=== PATIENT | male | born 1975 | race African-American/Black ===

== ENCOUNTER → 2017-07-30 | Outpatient (CLI) | payer OTHER ==
[2017-08-01 06:38] LABS: LUTEINIZING HORMONE 4.2 mIU/mL (1.7-8.6)
[2017-08-01 08:22] LABS: PROLACTIN 4.2 ng/mL (4.0-15.2)
== END ==
LOC: OD 15:13
PROVIDERS: ATTEND Urology
DX: I10 Essential (primary) hypertension (principal); F17.200 Nicotine dependence, unspecified, uncomplicated; N46.9 Male infertility, unspecified
CPT/HCPCS: 36415; 83001; 83002; 84146; 84403

== ENCOUNTER → 2017-09-02 | Outpatient (CLI) | payer SELFPAY ==
[2017-09-02 12:03] LABS: SPERM MORPHOLOGY SENT TO REFERENC LAB
[2017-09-02 12:50] LABS: ROUND CELL CONC. 0.5 X10^6/mL (<5.1); SA DILUTION FACTOR 2; SA NONMOTILE CONCENTRATION 8.6 X10^6/mL; SA NONMOTILE COUNT1 89; SA NONMOTILE COUNT2 83; SA ROUND CELL COUNT1 4; SA ROUND CELL COUNT2 5
[2017-09-02 12:53] LABS: SA DILUTION CNT 1 41; SA DILUTION CNT 2 51; SA SPERM MOTILE CONC 0.6 X10^6mL; TOTAL SPERM COUNT 28.5 X10^6 (>33.0)
[2017-09-02 12:54] LABS: SPERM PROGRESSION 4
[2017-09-02 13:32] LABS: PERCENT VIABLE 28 %; SEMEN VIABILITY STAINED 156; SEMEN VIABILITY UNSTAINED 60; TOTAL VIABILITY COUNT 216
[2017-09-02 13:34] LABS: PERCENT NONMOTILE SPERM 93 %; SPERM VIABILITY 33 % (>55)
== END ==
LOC: LAB 11:44
PROVIDERS: ATTEND Urology
DX: N46.9 Male infertility, unspecified (principal)
CPT/HCPCS: 89320

== ENCOUNTER 2018-10-23 17:20 | Emergency (ER) | payer SELFPAY ==
[2018-10-23] MEDS ORDERED: NORMAL SALINE 1000 ML 1,000 ML IV ONE ×3 (17:56→20:59)
[2018-10-23] MEDS ORDERED: ONDANSETRON HCL INJ/PF 4 MG/2 ML SDV IV ONE (17:57)
--- NOTE | 2018-10-23 17:59 | ER Document Report ---
ED Medical Screen (RME) - General Chief Complaint: S/S of Possible Stroke Stated Complaint: STROKE LIKE SYMPTOMS Time Seen by Provider: 10/23/18 17:47 Notes: Patient is a 42-year-old male that presents to the emergency department for chief complaint of weakness, generalized, increased thirst, and urination. Symptoms started earlier this morning, and seem to have progressed over that period of time until now, patient states he has decreased energy, denies weakness on one side of the body of the other, overall feels like he may pass out.. ROS: Other than noted above, the 12 point review of systems was reviewed with the patient and were negative, all pertinent findings are included in the HPI. PHYSICAL EXAMINATION: Vital signs reviewed. GENERAL: Well-appearing, well-nourished and in no acute distress. HEAD: Atraumatic, normocephalic. EYES: Pupils equal round extraocular movements intact, conjunctiva are normal. ENT: Nares patent NECK: Normal range of motion CV: Heart rate tachycardic, regular rhythm. LUNGS: No respiratory distress Musculoskeletal: Normal range of motion NEUROLOGICAL: Normal speech, no focal neurological deficit, NIH stroke scale score: 0. PSYCH: Normal mood, normal affect. MDM: Patient seen and examined for rapid initial assessment. Vital signs reviewed. A comprehensive ED assessment and evaluation of the patient, analysis of test results and completion of the medical decision making process will be conducted by additional ED providers. *Note is created using voice recognition software and may contain spelling, syntax or grammatical errors. TRAVEL OUTSIDE OF THE [place] IN LAST 30 DAYS: No - Related Data Allergies/Adverse Reactions: No Known Allergies Allergy (Verified 10/23/18 17:54) Past Medical History - Social History Chew tobacco use (# tins/day): No Frequency of alcohol use: None Drug Abuse: None - Past Medical History Cardiac Medical History: Reports: Hx Hypertension Renal/ Medical History: Denies: Hx Peritoneal Dialysis Physical Exam - Vital signs Vitals: Temp Pulse Resp BP Pulse Ox 97.6 F 104 H 22 H 145/79 H 93 10/23/18 17:36 10/23/18 17:36 10/23/18 17:36 10/23/18 17:36 10/23/18 17:36 Course - Vital Signs Vital signs: Temp Pulse Resp BP Pulse Ox 97.6 F 104 H 22 H 145/79 H 93 10/23/18 17:36 10/23/18 17:36 10/23/18 17:36 10/23/18 17:36 10/23/18 17:36 Doctor's Discharge - Discharge Referrals: PAULINA CALLES MD [Primary Care Provider] - Follow up as needed
[2018-10-23 18:33] LABS: VENOUS BLOOD BASE EXCESS -2.3 mmol/L; VENOUS BLOOD HCO3 24.7 mmol/L (20-32); VENOUS BLOOD PCO2 50.2 mmHg (35-63); VENOUS BLOOD PH 7.31 (7.30-7.42)
[2018-10-23 18:37] LABS: HEMATOCRIT 47.5 % (37.9-51.0); HEMOGLOBIN 14.8 g/dL (13.5-17.0); MEAN CORPUSCULAR HEMOGLOBIN 33.1 pg (27.0-33.4); MEAN CORPUSCULAR HGB CONC 31.1 g/dL (32.0-36.0); MEAN CORPUSCULAR VOLUME 106 fl (80-97); PLATELET COUNT 204 10^3/uL (150-450); RED BLOOD COUNT 4.48 10^6/uL (4.35-5.55); RED CELL DISTRIBUTION WIDTH 13.8 % (11.5-14.0); WHITE BLOOD COUNT 15.3 10^3/uL (4.0-10.5)
[2018-10-23 18:44] LABS: APPEARANCE,URINE CLEAR; BILIRUBIN,URINE NEGATIVE (NEGATIVE); COLOR,URINE COLORLESS; GLUCOSE, URINE >=500 mg/dL (NEGATIVE); KETONES,URINE NEGATIVE (NEGATIVE); LEUKOCYTE ESTERASE,URINE NEGATIVE (NEGATIVE); NITRITE,URINE NEGATIVE (NEGATIVE); PROTEIN,URINE NEGATIVE (NEGATIVE); URINE SPECIFIC GRAVITY 1.023; UROBILINOGEN,URINE NEGATIVE mg/dL (<2.0)
[2018-10-23 18:53] LABS: ALANINE AMINOTRANSFERASE 29 U/L (21-72); ALBUMIN 4.3 g/dL (3.5-5.0); ALKALINE PHOSPHATASE 116 U/L (38-126); ASPARTATE AMINO TRANSFERASE 28 U/L (17-59); BILIRUBIN,DIRECT 0.5 mg/dL (0.0-0.4); BILIRUBIN,TOTAL 0.9 mg/dL (0.2-1.3); BLOOD UREA NITROGEN 55 mg/dL (7-20); CALCIUM 9.5 mg/dL (8.4-10.2); TOTAL PROTEIN 6.5 g/dL (6.3-8.2)
[2018-10-23 19:01] LABS: CARBON DIOXIDE 21 mmol/L (22-30); CHLORIDE 53 mmol/L (98-107)
--- NOTE | 2018-10-23 19:02 | RADIOLOGY REPORT (SQ) ---
EXAM DESCRIPTION: CHEST SINGLE VIEW COMPLETED DATE/TIME: 10/23/2018 6:51 pm REASON FOR STUDY: weakness, confusion COMPARISON: None. EXAM PARAMETERS: NUMBER OF VIEWS: One view. TECHNIQUE: Single frontal radiographic view of the chest acquired. RADIATION DOSE: NA LIMITATIONS: None. FINDINGS: LUNGS AND PLEURA: Nonspecific or round opacity of the left lung base. No focal consolidat ion, pleural effusion, pneumothorax. MEDIASTINUM AND HILAR STRUCTURES: No masses. Contour normal. HEART AND VASCULAR STRUCTURES: Heart normal in size. Normal vasculature. BONES: No acute findings. HARDWARE: None in the chest. OTHER: No other significant finding. IMPRESSION: 1. No acute airspace disease. 2. Nodule like opacity of the left lung base which may represent an underlying pulmonary nodule. Non emergent dedicated chest CT is recommended for further evaluation. TECHNICAL DOCUMENTATION: JOB ID: [id number] [employer]- All Rights Reserved Reading location - IP/workstation name: [email or web address]
[2018-10-23 19:03] LABS: ABSOLUTE LYMPHOCYTES# (MANUAL) 0.9 10^3/uL (0.5-4.7); ABSOLUTE MONOCYTES # (MANUAL) 0.2 10^3/uL (0.1-1.4); ABSOLUTE NEUTROPHILS# (MANUAL) 14.2 10^3/uL (1.7-8.2); BASOPHILS % (MANUAL) 0 % (0-2); EOSINOPHILS % (MANUAL) 0 % (0-6); LYMPHOCYTES % (MANUAL) 6 % (13-45); MONOCYTES % (MANUAL) 1 % (3-13); PLATELET COMMENT ADEQUATE; SEGMENTED NEUTROPHILS % (MAN) 93 % (42-78); TOTAL CELLS COUNTED 100
[2018-10-23] MEDS ORDERED: CEFEPIME 2 GM/D5W RTU 2 GM/50 ML RTUPB IV ONE (19:10)
[2018-10-23] MEDS ORDERED: RINGERS SOLUTION,LACTATED 1,000 ML IV ONE (19:10)
--- NOTE | 2018-10-23 19:15 | ER Document Report ---
ED General - General Chief Complaint: S/S of Possible Stroke Stated Complaint: STROKE LIKE SYMPTOMS Time Seen by Provider: 10/23/18 17:47 Cannot obtain history due to: Altered mental status Notes: Patient is a 42-year-old male without chronic medical problems beyond hypertension who presents with 3-4 days of progressively worsening weakness, fatigue, and is currently so weak per significant other at the bedside he is unable to walk. History is somewhat limited as patient is lethargic and unable to provide appropriate history. He does state that he feels globally weak and "not good". Has not had fever or vomiting but does report that he has been nauseated. No headache, neck pain or chest pain. Denies any focal weakness or numbness. No recent falls or trauma. No history of similar symptoms in the past. He has not seen his primary care doctor regarding today's concerns. TRAVEL OUTSIDE OF THE [place] IN LAST 30 DAYS: No - Related Data Allergies/Adverse Reactions: No Known Allergies Allergy (Verified 10/23/18 17:54) Past Medical History - General Information source: Patient - Social History Smoking Status: Current Every Day Smoker Chew tobacco use (# tins/day): No Frequency of alcohol use: None Drug Abuse: None Lives with: Spouse/Significant other Family History: Reviewed & Not Pertinent Patient has suicidal ideation: No Patient has homicidal ideation: No - Past Medical History Cardiac Medical History: Reports: Hx Hypertension Renal/ Medical History: Denies: Hx Peritoneal Dialysis Review of Systems - Review of Systems Notes: Constitutional: Negative for fever. Positive for global weakness HENT: Negative for sore throat. Eyes: Negative for visual changes. Cardiovascular: Negative for chest pain. Respiratory: Negative for shortness of breath. Gastrointestinal: Positive for abdominal pain Genitourinary: Negative for dysuria. Musculoskeletal: Negative for back pain. Skin: Negative for rash. Neurological: Negative for headaches, weakness or numbness. 10 point ROS negative except as marked above and in HPI. Physical Exam - Vital signs Vitals: Temp Pulse Resp BP Pulse Ox 97.6 F 104 H 22 H 145/79 H 93 10/23/18 17:36 10/23/18 17:36 10/23/18 17:36 10/23/18 17:36 10/23/18 17:36 Interpretation: Hypertensive, Tachycardic Notes: PHYSICAL EXAMINATION: GENERAL: Extremely ill in appearance, lethargic HEAD: Atraumatic, normocephalic. EYES: Pupils equal round and reactive to light, extraocular movements intact, sclera anicteric, conjunctiva are normal. ENT: nares patent, oropharynx clear without exudates. Extraordinarily dry mucous membranes. NECK: Normal range of motion, supple without lymphadenopathy LUNGS: Breath sounds clear to auscultation bilaterally and equal. No wheezes rales or rhonchi. HEART: Regular tachycardia without murmurs ABDOMEN: Soft, somewhat obese abdomen, nontender, normoactive bowel sounds. No guarding, no rebound. No masses appreciated. EXTREMITIES: Normal range of motion, no pitting or edema. No cyanosis. NEUROLOGICAL: No focal neurological deficits. Moves all extremities spontaneously and on command. PSYCH: Somewhat lethargic, oriented to self SKIN: Warm, Dry, normal turgor, no rashes or lesions noted. Course - Re-evaluation Re-evalutation: 10/23/18 19:13 Presentation of a very ill-appearing 42-year-old male that is somewhat lethargic , noted to be tachycardic and hypoxic to 90% at time of presentation. He is so weak that he is unable to even stand. He was unable to walk from his vehicle to the emergency department lobby. Appears to have mild icterus on exam. He has no focal neurologic deficit. He does have some abdominal swelling and protuberance without localized rebound or guarding. Initial chest x-ray does show a left lower lobe nodule and my initial concern is that the patient may have metastatic cancer of some variant particularly given his history of weight loss. His initial lactate is markedly elevated at 9.7. He has received 1 L of fluid and will receive a second liter. His white blood cell count is also elevated. Will begin empiric coverage with cefepime at this point. Will proceed with CT of the chest abdomen and pelvis to further clarify. I not believe any neuroimaging is indicated as patient's history and symptoms are more consistent with global weakness as opposed to true focal neurologic deficits. Awaiting additional laboratories, imaging and then will reassess the patient. 10/23/18 20:05 9 patient's laboratories have come back with a markedly elevated glucose elevation of greater than 2000. Patient does not have ketonuria, picture most consistent with HHS given patient's lethargy although he is not attended and does not require intubation at this point. 2 additional liters of normal saline will be ordered bringing his total fluid resuscitation to 4 L at this point. An insulin infusion at 0.14 units/kg/h has also been started. Additional points of IV access will be obtained. CT scans are pending. Will continue to reassess at regular intervals. Sodium on CMP is listed as being 103 although with correction for severe hyperglycemia corrects to 136. Will therefore continue aggressive fluid resuscitation. He is also hyperkalemic although again this is likely effect of his marked hyperglycemia. CT scan will have to be done without contrast as the patient does have an acute prerenal azotemia. Lipase is also markedly elevated and to 5000 range. 10/23/18 21:20 Patient's mental status is improving. His tachycardia is likewise resolved. CT the abdomen and pelvis shows heterogeneous change of the liver but no additional specific findings. CT of the chest does state that there could be a possible bibasilar pneumonia. I have contacted [facility] and requested transfer. I have reviewed results with patient who is agreeable with transfer. 10/23/18 21:38 I have discussed this case with Dr. Serna at [facility] who has accepted the patient for transfer. Continue to monitor closely. 10/23/18 23:00 Patient is continued to clinically improve. Alert and oriented x4. Transport has arrived and patient is clinically appropriate and stable for transfer at this time. - Vital Signs Vital signs: Temp Pulse Resp BP Pulse Ox 97.2 F 82 18 143/86 H 97 10/23/18 23:00 10/23/18 23:00 10/23/18 23:00 10/23/18 23:00 10/23/18 23:00 - Laboratory Result Diagrams: 10/23/18 18:13 10/23/18 21:30 Laboratory results interpreted by me: 10/23/18 10/23/18 10/23/18 17:35 18:13 18:13 WBC 15.3 H MCV 106 H MCHC 31.1 L Seg Neuts % (Manual) 93 H Lymphocytes % (Manual) 6 L Monocytes % (Manual) 1 L Abs Neuts (Manual) 14.2 H Sodium 103.4 L* Potassium 6.8 H* Chloride 53 L Carbon Dioxide 21 L Anion Gap 29 H BUN 55 H Creatinine 2.43 H Est GFR ( Amer) 35 L Est GFR (Non-Af Amer) 29 L Glucose 2242 H* Serum Osmolality Lactic Acid Direct Bilirubin 0.5 H Lipase 5610.1 H Urine Glucose (UA) >=500 H 10/23/18 10/23/18 10/23/18 18:13 18:13 21:30 WBC MCV MCHC Seg Neuts % (Manual) Lymphocytes % (Manual) Monocytes % (Manual) Abs Neuts (Manual) Sodium 112.8 L* Potassium 5.1 H D Chloride 68 L Carbon Dioxide Anion Gap 21 H BUN 58 H Creatinine 2.30 H Est GFR ( Amer) 38 L Est GFR (Non-Af Amer) 31 L Glucose 1771 H* Serum Osmolality 359 H Lactic Acid 9.3 H Direct Bilirubin Lipase Urine Glucose (UA) 10/23/18 22:09 WBC MCV MCHC Seg Neuts % (Manual) Lymphocytes % (Manual) Monocytes % (Manual) Abs Neuts (Manual) Sodium Potassium Chloride Carbon Dioxide Anion Gap BUN Creatinine Est GFR ( Amer) Est GFR (Non-Af Amer) Glucose Serum Osmolality Lactic Acid 6.8 H Direct Bilirubin Lipase Urine Glucose (UA) - Diagnostic Test Radiology reviewed: Image reviewed, Reports reviewed Radiology results interpreted by me: 10/24/18 00:09 Chest x-ray: Possible left lower lobe nodularity versus infiltrate Critical Care Note - Critical Care Note Total time excluding time spent on procedures (mins): 55 Comments: Critical care time spent obtaining history from patient or surrogate, discussions with consultants, development of treatment plan with patient or surrogate, evaluation of patient's response to treatment, examination of patient , ordering and performing treatments and interventions, ordering and review of laboratory studies, re-evaluation of patient's condition, ordering and review of radiographic studies and review of old charts Discharge - Discharge Clinical Impression: Hyperglycemic hyperosmolar state, Hyperglycemia, Lactic acidosis Pancreatitis Qualifiers: Chronicity: acute Pancreatitis type: unspecified pancreatitis type Acute pancreatitis complication: unspecified Qualified Code(s): K85.90 - Acute pancreatitis without necrosis or infection, unspecified Condition: Fair Disposition: ADMITTED INPATIENT Referrals: PAULINA CALLES MD [NO LOCAL MD] - Follow up as needed
[2018-10-23 19:23] LABS: FREE T4 (FREE THYROXINE) 0.97 ng/dL (0.78-2.19)
[2018-10-23 19:37] LABS: THYROID STIMULATING HORMONE 0.5 uIU/mL (0.47-4.68)
[2018-10-23 19:49] LABS: ANION GAP 29 (5-19); CREATINE KINASE 86 U/L (55-170)
[2018-10-23 20:00] LABS: NT PRO BNP 59 pg/mL (<125)
[2018-10-23 20:03] LABS: GLUCOSE 2242 mg/dL (75-110); POTASSIUM 6.8 mmol/L (3.6-5.0)
[2018-10-23 20:04] LABS: SODIUM 103.4 mmol/L (137-145)
[2018-10-23] MEDS ORDERED: INSULIN REG, HUMAN 100 UNIT/ML 3 ML VIAL (PYX) IV ONE (20:04)
[2018-10-23 20:05] LABS: LIPASE 5610.1 U/L (23-300)
[2018-10-23 20:06] LABS: TROPONIN I < 0.012 ng/mL
--- NOTE | 2018-10-23 20:44 | RADIOLOGY REPORT (SQ) ---
EXAM DESCRIPTION: CT CHEST WITHOUT COMPLETED DATE/TIME: 10/23/2018 8:33 pm REASON FOR STUDY: lactate 10, ab pain, hypoxia COMPARISON: Chest radiograph 10/23/2018 TECHNIQUE: CT scan performed of the chest without intravenous contrast. Images reviewed with lung, soft tissue and bone windows. Reconstructed coronal and sagittal MPR images reviewed. All images st ored on PACS. All CT scanners at this facility use dose modulation, iterative reconstruction, and/or weight based d osing when appropriate to reduce radiation dose to as low as reasonably achievable (ALARA). [facility]: Dose Right [facility]: CareDose [facility]: Dose Right [facility]: Teradose 4D [facility]: [employer] RADIATION DOSE: mGy. LIMITATIONS: No technical limitations. FINDINGS: LUNGS AND PLEURA: Bibasilar consolidation with air bronchograms. No pleural effusion. No pneumothorax. HILAR AND MEDIASTINAL STRUCTURES: No identified masses or abnormal nodes. No obvious aneurysm. HEART AND VASCULAR STRUCTURES: No aneurysm. No pericardial effusion. UPPER ABDOMEN: No significant findings. Limited exam. THYROID AND OTHER SOFT TISSUES: No masses. No adenopathy. BONES: No significant finding. HARDWARE: None in the chest. OTHER: No other significant findings. IMPRESSION: In the appropriate clinical setting, findings are consistent with multi lobar pneumonia. TECHNICAL DOCUMENTATION: JOB ID: [id number] Quality ID # [id number]: Final reports with documentation of one or more dose reduction techniques (e.g., Au tomated exposure control, adjustment of the mA and/or kV according to patient size, use of iterative reconstruction technique) 2010 [employer]- All Rights Reserved Reading location - IP/workstation name: [email or web address]
--- NOTE | 2018-10-23 20:53 | RADIOLOGY REPORT (SQ) ---
EXAM DESCRIPTION: CT ABD/PELVIS NO ORAL OR IV COMPLETED DATE/TIME: 10/23/2018 8:33 pm REASON FOR STUDY: lactate 10, ab pain, hypoxia COMPARISON: 03/23/2009 TECHNIQUE: CT scan of the abdomen and pelvis performed without intravenous or oral contrast. Images reviewed with lung, soft tissue, and bone windows. Reconstructed coronal and sagittal MPR images revi ewed. All images stored on PACS. All CT scanners at this facility use dose modulation, iterative reconstruction, and/or weight based d osing when appropriate to reduce radiation dose to as low as reasonably achievable (ALARA). [facility]: Dose Right [facility]: CareDose [facility]: Dose Right [facility]: Teradose 4D [facility]: [employer] RADIATION DOSE: CT Rad equipment meets quality standard of care and radiation dose reduction techniq ues were employed. CTDIvol: 14.4 mGy. DLP: 1168 mGy-cm.mGy. LIMITATIONS: None. FINDINGS: LOWER CHEST: See separate report of the CT of the chest. NON-CONTRASTED LIVER, SPLEEN, ADRENALS: Evaluation limited by lack of IV contrast. The liver demonst rates diffusely heterogeneous attenuation; given relative sparing at the gallbladder fossa, this may represent geographic fatty infiltration. Diffuse infiltrating process is not excluded. PANCREAS: No masses. No peripancreatic inflammatory changes. GALLBLADDER: No identified stones by CT criteria. No inflammatory changes to suggest cholecystitis. RIGHT KIDNEY AND URETER: No solid masses. No significant calcification. No hydronephrosis or hydroure ter. LEFT KIDNEY AND URETER: No solid masses. No significant calcification. No hydronephrosis or hydrouret er. AORTA AND RETROPERITONEUM: No aneurysm. No retroperitoneal masses or adenopathy. BOWEL AND PERITONEAL CAVITY: No obvious masses or inflammatory changes. No free fluid. APPENDIX: Normal. PELVIS, BLADDER, AND ABDOMINAL WALL:No abnormal masses. No free fluid. Bladder normal. BONES: No significant findings. OTHER: No other significant finding. IMPRESSION: Diffusely heterogeneous attenuation of the liver without focal mass lesion. Differentia l considerations include geographic fatty infiltration, hepatitis, infiltrative neoplasm, etc. TECHNICAL DOCUMENTATION: JOB ID: [id number] Quality ID # [id number]: Final reports with documentation of one or more dose reduction techniques (e.g., Au tomated exposure control, adjustment of the mA and/or kV according to patient size, use of iterative reconstruction technique) 2010 [employer]- All Rights Reserved Reading location - IP/workstation name: [email or web address]
[2018-10-23 21:55] LABS: BLOOD UREA NITROGEN 58 mg/dL (7-20); CALCIUM 8.9 mg/dL (8.4-10.2)
[2018-10-23 22:00] LABS: CARBON DIOXIDE 24 mmol/L (22-30); CHLORIDE 68 mmol/L (98-107)
[2018-10-23 22:23] LABS: ANION GAP 21 (5-19); POTASSIUM 5.1 mmol/L (3.6-5.0)
[2018-10-23 22:25] LABS: GLUCOSE 1771 mg/dL (75-110); SODIUM 112.8 mmol/L (137-145)
[2018-10-23 23:18] VITALS: BP 143/86
== END 2018-10-23 23:30 | disposition short-term general hospital (02) ==
LOC: ER 17:20
DX: R73.9 Hyperglycemia, unspecified (principal); K85.90 Acute pancreatitis without necrosis or infection, unspecified; E87.5 Hyperkalemia; E87.2 Acidosis; R09.02 Hypoxemia; R91.1 Solitary pulmonary nodule; R63.4 Abnormal weight loss; D72.829 Elevated white blood cell count, unspecified; R53.1 Weakness; R53.83 Other fatigue; R11.0 Nausea; R10.9 Unspecified abdominal pain; R00.0 Tachycardia, unspecified; I10 Essential (primary) hypertension; F17.200 Nicotine dependence, unspecified, uncomplicated
CPT/HCPCS: 99291; 96361; 96375; 96365; 36415; 84439; 82962; 82550; 83690; 83930; 84443; 85025; 80048; 80053; 81001; 84484; 82803; 83605; 83880; 71045; 71250; 74176; J1815; J2405; J7030; J0692